=== PATIENT | female | born 1965 | race Caucasian/White ===

== ENCOUNTER → 2024-02-12 10:56 | Outpatient (REF) | payer BC, SELFPAY | LOC: HWWDC 10:56 | PROVIDERS: ATTENDING PHYSICIAN Nurse Practitioner Women's Health; FAMILY PHYSICIAN Internal Medicine | DX: Z12.31 Encounter for screening mammogram for malignant neoplasm of breast (principal) | CPT/HCPCS: 77063; 77067 ==

== ENCOUNTER → 2024-08-19 14:26 | Outpatient (REF) | payer BC, SELFPAY | LOC: WDC 14:26 | PROVIDERS: ATTENDING PHYSICIAN Nurse Practitioner Women's Health | DX: R92.30 Dense breasts, unspecified (principal) | CPT/HCPCS: 76641 ==